=== PATIENT | female | born 1950 | race Caucasian/White ===

== ENCOUNTER 2017-02-22 15:37 | Observation (INO) | payer MEDICARE, OTHER ==
[~2017-02-22] VITALS: Ht 162.6 cm; Wt 73.1 kg
[~2017-02-22 15:37] MED LIST: AMOX-366 PO; ASPI-628 PO; ATOR80TA77 PO; BIOT800T PO; CHOL10002 PO; CIPR-232 PO; CLOP75TA3 PO; CUB500I IV; DIAZ10TA3 PO; FUR20 PO; GABA-500 PO; INSU100C8 SUBQ; INSU100V7 SUBQ; ISOS60TA2 PO; LISI-567 PO; METO25TA6 PO; MULT-64 PO; OMEG1000 PO; ONDA8TAB10 PO; OXYC5CAP4 PO; PANT40TA3 PO; POLY17PO2 PO
[2017-02-22 15:39] VITALS: BP 104/61; PULSE 66; RESP 16; O2SAT 98
--- NOTE | 2017-02-22 17:01 | ED.REPORT ---
HPI-Extremity Problem Lower Date of Service February 22, 2017 ED Provider: Doc,Ed MD History of Present Illness: left toes red and swollen started yesterday. eun is podiatry. DM for 51 years last a1c was 7.9 done last week. primary care is Litzy vanegas, recent move here from [facility]. 02/26 Nursing Notes Stated Complaint: FOOD SWOLLEN AND RED WITH PUSS Chief Complaint: Extremity Trauma Nursing Notes Reviewed: Yes Allergies: Coded Allergies: Adhesives (Verified Allergy, Unknown, 02/22/17) Sulfa (Sulfonamide Antibiotics) (Verified Allergy, Unknown, 02/22/17) TAPE (Verified Allergy, Unknown, 02/22/17) fluconazole (Verified Allergy, Unknown, 02/22/17) sulfadiazine (Verified Allergy, Unknown, 02/22/17) titanium (Verified Allergy, Unknown, 02/22/17) Uncoded Allergies: IV CONTRAST (Allergy, Unknown, 07/31/16) RENAL FAILURE Scheduled Amoxicillin/Clav K 875-125 mg (Augmentin 875-125 mg) 1 Each Tablet 1 TABLET PO BID Aspirin (Aspir 81) 81 Mg Tablet.dr 81 MG PO PM Atorvastatin Calcium (Atorvastatin Calcium) 80 Mg Tablet 80 MG PO PM Biotin (Biotin) 800 Mcg Tablet 800 MCG PO DAILY Cholecalciferol (Vitamin D3) 1,000 Unit Tablet 1,000 UNIT PO PM Ciprofloxacin (Cipro) 250 Mg Tablet 500 MG PO BID Clopidogrel Bisulfate (Plavix) 75 Mg Tablet 75 MG PO DAILY Daptomycin (Cubicin) 500 Mg/10 Ml Vial 420 MG IV DAILY Furosemide (Furosemide) 20 Mg Tab 20 MG PO DAILY Gabapentin (Gabapentin) 100 Mg Capsule 100 MG PO TID Gabapentin (Gabapentin) 100 Mg Capsule 300 MG PO HS Insulin Aspart (NovoLOG U100 Insulin Vial) 100 U/Ml U 4-12 UNIT SUBQ WMHS B-199: 4 units 200-249: 6 units 250-299: 8 units 300-349: 10 units >349 : 12 units Insulin Glargine (Lantus U100 Insulin Vial) 100 Unit/Ml Vial 22 UNIT SUBQ QPM- INSULIN Isosorbide MN ER (Isosorbide MN ER) 60 Mg Tab.er.24h 60 MG PO BID Lisinopril (Lisinopril) 20 Mg Tablet 20 MG PO DAILY Metoprolol Tartrate (Metoprolol Tartrate) 25 Mg Tablet 25 MG PO BID Multivitamin (Multivitamins) 1 Each Tab.chew 1 EACH PO AM [place]-3 Fatty Acids (Fish Oil Concentrate) 1,000 Mg Capsule 1,000 MG PO BID Pantoprazole DR (Pantoprazole DR) 40 Mg Tablet.dr 40 MG PO BID Scheduled PRN Diazepam (Diazepam) 10 Mg Tablet 10 MG PO TID PRN PRN For Anxiety Ondansetron ODT (Ondansetron ODT) 8 Mg Tab.rapdis 8 MG PO BID PRN PRN For Nausea Polyethylene Glycol 3350 (Polyethylene Glycol 3350) 17 Gm Powd.pack 17 GM PO DAILY PRN PRN For Constipation oxyCODONE (oxyCODONE) 5 Mg Capsule 5 MG PO 2-3X/day PRN PRN For Pain General Time Seen by MD: 17:00 Chief Complaint Other (red toes) Hx Obtained From: Patient Onset Occurred: Yesterday Symptom Duration: Since onset Past Medical History Past Medical History 1. Diabetic ulceration of the right second toe. 2. Diabetes with neurologic manifestations. 3. Peripheral vascular disease Reports: Diabetes mellitus Past Surgical History Spinal surgery in September Gastric bypass Cardiac stent Amputation right leg Peripheral revascularization left leg Smoking History Former Smoker (quit 15 years ago 02/22/2017) Social History Alcohol Use: 1-3 per day Drug Use: Denies drug use Other Social History: Occupation lives with 1 story with a ramp 02/22/2017 Ambulatory Status Independent Review of Systems Basic Review of Systems Eyes: Vision NL, No discharge GI: No abdominal pain, No anorexia, No nausea, No vomiting Psychiatric: Normal thought content Physical Exam Initial Vital Signs Vital Signs (First) Date Time Temp Pulse Resp B/P Pulse Ox O2 Delivery O2 Flow Rate FiO2 02/22/17 15:39 36.4 66 16 104/61 98 Room Air Initial VS: Reviewed, Vital signs normal General/Constitutional: Well-developed, Well-nourished Head / Eyes: Atraumatic, Normocephalic, PERRL ENT: Mucous membranes moist, Conjunctiva normal, No scleral icterus Neck: Supple, Non-tender, Full range of motion Respiratory: Breath sounds normal, Clear to auscultation, No respiratory distress Cardiovascular: Regular rate & rhythm, Heart sounds normal, Intact distal pulses Abdomen / GI: Soft, Non-tender, No guarding, No rebound, No distention Back: No CVA tenderness Lymphatic: No lymphadenopathy Upper Extremities: Vascular intact, Neuro intact, No swelling, No tenderness Skin: Warm, Dry, No cyanosis Neurologic: Alert, Oriented, Nonfocal Psychiatric: Mood/affect normal, Behavior normal, Normal thought content on initial exam left lower leg had a large amount of swelling and was cool to touch and pale with minimal erthyma on toes. After elevating leg and antibiotics, leg swelling has decreased by 50% and erthyma has increased. GRAEME is left arm 125/44 left leg is 125/62 General/Constitutional: Awake, Alert, No acute distress, Well appearing, Well developed, Well hydrated Respiratory / Chest: Atraumatic, Breath sounds NL, Breath sounds = bilat, No respiratory distress Cardiovascular: Heart rate NL, Regular rhythm, Heart sounds NL, No gallop Interpretation & Diagnostics Lab Results Interpretation Result Diagram: 02/22/17 1710 02/22/17 1710 Test 02/22/17 17:10 White Blood Count 11.1th/mm3 (3.8-10.1) Red Blood Count 4.36mil/mm3 (3.90-5.20) Hemoglobin 11.5g/dL (12.0-15.6) Hematocrit 36.3% (35.0-46.0) Mean Corpuscular Volume 83.3fL (81-100) Mean Corpuscular Hemoglobin 26.4pg (27.0-35.0) Mean Corpuscular Hemoglobin Concent 31.7% (32.0-37.0) Red Cell Distribution Width 14.1% (12.3-15.4) Platelet Count 449bil/L (150-400) Neutrophils (%) (Auto) 56.9% (40-74) Lymphocytes (%) (Auto) 31.4% (14-46) Monocytes (%) (Auto) 8.8% (4-12) Eosinophils (%) (Auto) 1.9% (0-5) Basophils (%) (Auto) 0.7% (0-3) Sodium Level 136mEq/L (134-144) Potassium Level 4.4mEq/L (3.5-5.2) Chloride Level 98mEq/L (97-108) Carbon Dioxide Level 25mmol/L (18-29) Blood Urea Nitrogen 16mg/dL (8-27) Creatinine 0.79mg/dL (0.57-1.00) Estimat Glomerular Filtration Rate 105mL/min (>59) Glucose Level 48mg/dL (60-99) Lactic Acid Level 0.9mmol/L (0.4-2.0) Calcium Level 9.1mg/dL (8.5-10.1) Magnesium Level 1.4mg/dL (1.6-2.6) Total Bilirubin 0.4mg/dL (0.0-1.2) Aspartate Amino Transf (AST/SGOT) 20U/L (0-50) Alanine Aminotransferase (ALT/SGPT) 17U/L (0-32) Alkaline Phosphatase 108U/L (25-165) Troponin T < 0.010ug/L (0.0-0.011) Total Protein 6.9g/dL (6.4-8.4) Albumin 3.3g/dL (3.4-5.0) X-Ray Interpretation Xray Interpretation: PROCEDURE: X-RAY LEFT FOOT COMPLETE, MINIMUM THREE VIEWS ([id number]) INDICATIONS: swelling TECHNIQUE: 3 views of the foot were acquired. COMPARISON: None. FINDINGS: Bones: Bones are diffusely osteopenic. No acute fracture or dislocation. Soft tissues: There is marked dorsal soft tissue swelling. There extensive soft tissue vascular calcifications. IMPRESSION: 1. Dorsal soft tissue swelling. No acute fracture or dislocation. No findings to suggest advanced osteomyelitis. Please note, plain film is less sensitive for detection of the acute phases of osteomyelitis. If there is clinical suspicion for acute osteomyelitis, contrast enhanced MRI of the foot is recommended. Dictated by: Maria L Woods M.D. on 02/22/2017 at 17:41 Approved by: Maria L Woods M.D. on 02/22/2017 at 17:43 US Soft Tissue/Musculoskeletal ROCEDURE: US DUPLEX DOPPLER UNILATERAL LEG ARTERIES, LEFT INDICATIONS: cool leg TECHNIQUE: Color and pulse Doppler interrogation was performed of the left lower extremity arterial system, with image documentation. COMPARISON: None. FINDINGS: There is a common femoral, popliteal bypass graft present. Common femoral artery: 247 cm/sec, with biphasic flow. Deep femoral artery: Not well-visualized. Proximal bypass graft: 142 cm/sec, with biphasic flow. Mid bypass graft: 82 cm/sec, with biphasic flow. Distal bypass graft: 100 cm/sec, with monophasic flow. Popliteal artery: Not well-visualized. Posterior tibial artery: Not well-visualized. Anterior tibial artery/dorsalis pedis: 43 cm/sec, with monophasic flow. Giraldo-scale imaging description: Bypass graft is widely patent. However, the distal anastomosis is not well characterized by ultrasound. IMPRESSION: 1. Femoral-popliteal bypass graft appears widely patent throughout its course. However, the distal anastomosis is not well characterized. Anastomotic stenosis cannot be excluded. 2. There is poor ultrasound characterization of the popliteal artery and posterior tibial artery. It is unclear whether there may be a high-grade stenosis or occlusion of this artery with reconstitution of the dorsalis pedis via collaterals. If further characterization is warranted, consider CT angiography of the lower extremity. Dictated by: Maria L Woods M.D. on 02/22/2017 at 19:09 Approved by: Maria L Woods M.D. on 02/22/2017 at 19:14 PROCEDURE: US VEINOUS LEG DUPLEX UNILATERAL, LEFT INDICATIONS: leg swelling TECHNIQUE: Real-time imaging, as well as color and pulse Doppler interrogation, were performed of the lower extremity deep veins from the inguinal ligament to the popliteal fossa. COMPARISON: None. FINDINGS: The deep veins are normally compressible, and free of intraluminal thrombus. Color and pulse Doppler demonstrate normal phasic intraluminal flow. There is normal augmentation response to distal compression maneuver. IMPRESSION: No deep vein thrombosis of the left lower extremity. Dictated by: Maria L Woods M.D. on 02/22/2017 at 19:09 Approved by: Maria L Woods M.D. on 02/22/2017 at 19:09 Re-Eval/Medical Decision Med Decision/Clinical Course 67 year old type 1 diabetic presents for evualation of red toes since last night. Patient and are new to town. Patient with vascular disease. Discussed with Juan SERRATO and Dr. Chavez. Dr. Chavez will follow patient . Admitted Discharge & Departure Impression: Primary Impression: Cellulitis Site of cellulitis of extremity: lower extremity Laterality: left Disposition: ADMITTED TO HOSPITAL Referrals: Litzy Vanegas (PCP) EDSupervising Provider for APC: Garry Martinez MD copies to: Litzy Vanegas Sue ARNP February 22, 2017 17:01
[2017-02-22] MEDS ORDERED: 0.9% Sodium Chloride 500 ML IV ONE (17:15)
[2017-02-22] MEDS ORDERED: Piperacillin-Tazo 3.375 Gm Inj 3.375 GM in Dextrose 5% Minibag Plus 50 ML IV ONE (17:25)
[2017-02-22 17:27] LABS: BASOPHILS % (AUTO) 0.7 % (0-3); EOSINOPHILS % (AUTO) 1.9 % (0-5); MONOCYTES % (AUTO) 8.8 % (4-12); Mean Corpuscular Hemoglobin 26.4 pg (27.0-35.0); Mean Corpuscular Volume 83.3 fL (81-100); NEUTROPHILS % (AUTO) 56.9 % (40-74); Platelet Count 449 bil/L (150-400)
--- NOTE | 2017-02-22 17:44 | DRSVH ---
PROCEDURE: X-RAY LEFT FOOT COMPLETE, MINIMUM THREE VIEWS ([id number]) INDICATIONS: swelling TECHNIQUE: 3 views of the foot were acquired. COMPARISON: None. FINDINGS: Bones: Bones are diffusely osteopenic. No acute fracture or dislocation. Soft tissues: There is marked dorsal soft tissue swelling. There extensive soft tissue vascular calci fications. IMPRESSION: 1. Dorsal soft tissue swelling. No acute fracture or dislocation. No findings to suggest advanced ost eomyelitis. Please note, plain film is less sensitive for detection of the acute phases of osteomyeli tis. If there is clinical suspicion for acute osteomyelitis, contrast enhanced MRI of the foot is rec ommended. Dictated by: Maria L Woods M.D. on 02/22/2017 at 17:41 Approved by: Maria L Woods M.D. on 02/22/2017 at 17:43
[2017-02-22 17:49] LABS: TROPONIN T < 0.010 ug/L (0.0-0.011)
[2017-02-22 18:00] LABS: Magnesium 1.4 mg/dL (1.6-2.6)
--- NOTE | 2017-02-22 19:11 | DRSVH ---
PROCEDURE: US VEINOUS LEG DUPLEX UNILATERAL, LEFT INDICATIONS: leg swelling TECHNIQUE: Real-time imaging, as well as color and pulse Doppler interrogation, were performed of the lower extr emity deep veins from the inguinal ligament to the popliteal fossa. COMPARISON: None. FINDINGS: The deep veins are normally compressible, and free of intraluminal thrombus. Color and pu lse Doppler demonstrate normal phasic intraluminal flow. There is normal augmentation response to di stal compression maneuver. IMPRESSION: No deep vein thrombosis of the left lower extremity. Dictated by: Maria L Woods M.D. on 02/22/2017 at 19:09 Approved by: Maria L Woods M.D. on 02/22/2017 at 19:09
--- NOTE | 2017-02-22 19:15 | DRSVH ---
PROCEDURE: US DUPLEX DOPPLER UNILATERAL LEG ARTERIES, LEFT INDICATIONS: cool leg TECHNIQUE: Color and pulse Doppler interrogation was performed of the left lower extremity arterial system, with image documentation. COMPARISON: None. FINDINGS: There is a common femoral, popliteal bypass graft present. Common femoral artery: 247 cm/sec, with biphasic flow. Deep femoral artery: Not well-visualized. Proximal bypass graft: 142 cm/sec, with biphasic flow. Mid bypass graft: 82 cm/sec, with biphasic flow. Distal bypass graft: 100 cm/sec, with monophasic flow. Popliteal artery: Not well-visualized. Posterior tibial artery: Not well-visualized. Anterior tibial artery/dorsalis pedis: 43 cm/sec, with monophasic flow. Giraldo-scale imaging description: Bypass graft is widely patent. However, the distal anastomosis is not well characterized by ultrasound. IMPRESSION: 1. Femoral-popliteal bypass graft appears widely patent throughout its course. However, the distal an astomosis is not well characterized. Anastomotic stenosis cannot be excluded. 2. There is poor ultrasound characterization of the popliteal artery and posterior tibial artery. It is unclear whether there may be a high-grade stenosis or occlusion of this artery with reconstitution of the dorsalis pedis via collaterals. If further characterization is warranted, consider CT angiogr aphy of the lower extremity. Dictated by: Maria L Woods M.D. on 02/22/2017 at 19:09 Approved by: Maria L Woods M.D. on 02/22/2017 at 19:14
[2017-02-22 19:38] VITALS: BP_SYST 125; BP_DIAS 44; BP_DIAS 62
--- NOTE | 2017-02-22 20:11 | PCM.HPMED ---
Subjective Date of Service February 22, 2017 Primary Provider: Admitting Physician: Primary Care Physician: Litzy Vanegas Attending Physician: Chief Complaint: Left toes swelling and redness History of Present Illness: This is a 67-year-old female with past medical history significant for right below the knee amputation, type I diabetes mellitus with neuropathy, coronary artery disease status post stent placement and CABG, and peripheral vascular disease who presents today with swollen and red left toes. She has a significant neuropathy but states she does have some pain described as a burning sensation. The swelling began yesterday and has progressively worsened. Her last A1c was completed last week was 7.9. She denies any fevers , nausea, vomiting, diarrhea, chest pain or pressure, shortness of breath, diaphoresis, numbness or tingling extremities. In the emergency department initial vitals were temperature 36.4c, pulse 66, respiratory rate 16, blood pressure 104/61, satting 98% on room air. Laboratory values: WBC 11.1, hemoglobin 11.6, hematocrit 36.3, MCV 83.3, platelet count 449. CMP was within normal limits except for glucose of 48, albumin of 3.3, and magnesium of 1.4. Lactic acid was 0.9 and troponin less than 0.010. Blood cultures are pending. Venous duplex showed no deep vein thrombosis of the left lower extremity. Left foot x-ray showed dorsal soft tissue swelling, no fracture dislocation, no findings suggestive of advanced osteomyelitis. US duplex left leg arteries showed femoropopliteal bypass graft widely patent however the distal anastomoses was not well characterized. Anastomotic stenosis cannot be excluded. There was poor ultrasound characterization of the popliteal artery and posterior tibial artery. It was unclear whether there may be a high-grade stenosis or occlusion of the artery with reconstitution of the dorsalis pedis via collaterals. Please see full imaging reports for more information. In the emergency department the patient was started on Zosyn and vancomycin. Podiatry was contacted. Dr. Chavez will see the patient in morning. Review of Systems: A comprehensive review of systems was conducted with the patient and found to be negative except as above in the History of Present Illness. Allergies Coded Allergies: Adhesives (Verified Allergy, Unknown, 02/22/17) Sulfa (Sulfonamide Antibiotics) (Verified Allergy, Unknown, 02/22/17) TAPE (Verified Allergy, Unknown, 02/22/17) fluconazole (Verified Allergy, Unknown, 02/22/17) sulfadiazine (Verified Allergy, Unknown, 02/22/17) titanium (Verified Allergy, Unknown, 02/22/17) Uncoded Allergies: IV CONTRAST (Allergy, Unknown, 07/31/16) RENAL FAILURE Home Medications Aspirin (Aspir 81) 81 Mg Tablet.dr 81 MG PO PM Atorvastatin Calcium (Atorvastatin Calcium) 80 Mg Tablet 80 MG PO PM Cholecalciferol (Vitamin D3) 1,000 Unit Tablet 1,000 UNIT PO PM Clopidogrel Bisulfate (Plavix) 75 Mg Tablet 75 MG PO DAILY Furosemide (Furosemide) 20 Mg Tab 20 MG PO DAILY Gabapentin (Gabapentin) 100 Mg Capsule 900mg PO HS Novolin 13 units BID Isosorbide MN ER (Isosorbide MN ER) 60 Mg Tab.er.24h 60 MG PO BID Lisinopril (Lisinopril) 5 MG PO DAILY Metoprolol Tartrate (Metoprolol Tartrate) 25 Mg Tablet 25 MG PO BID Pantoprazole DR (Pantoprazole DR) 40 Mg Tablet.dr 40 MG PO BID Scheduled PRN Diazepam (Diazepam) 10 Mg Tablet 10 MG at bedtime. Polyethylene Glycol 3350 (Polyethylene Glycol 3350) 17 Gm Powd.pack 17 GM PO DAILY PRN PRN For Constipation oxyCODONE (oxyCODONE) 5 Mg Capsule 5 MG PO 2-3X/day PRN PRN For Pain PMH Type I diabetes mellitus Coronary artery disease status post stent placement and CABG. Peripheral vascular disease Peripheral neuropathy. Gastroesophageal reflux disease Vitamin D deficiency Hyperlipidemia Hypertension History of contrast induced nephropathy. Surgical History Spinal surgery CABG x2 Cardiac stent Below the knee amputation of right leg Peripheral revascularization of left leg. Family History Brother: Throat cancer Father: Cardiovascular disease Mother: Pancreatic cancer Social History Hx Alcohol Use: Yes Alcoholic Drinks Per Day: 2/day Hx Substance Use: No Hx Tobacco Use: No Smoking Status: Former Smoker Exam Vital Signs Vital Sign - Last Date Time Temp Pulse Resp B/P Pulse Ox O2 Delivery O2 Flow Rate FiO2 02/22/17 19:38 125/44 125/62 02/22/17 15:39 36.4 66 16 98 Room Air Exam General: No acute distress, well-developed, well-nourished, appropriately interactive HEENT: Normocephalic, atraumatic. External ears without defect. Pupils equal, round, and reactive to light and accommodation. Anicteric sclerae, moist conjunctivae, and no lid lag. Oropharynx free of erythema and cobble stoning with moist mucosa. Neck: Supple with full range of motion. No jugular venous distension. No bruits. No lymphadenopathy or thyromegaly. Cardiovascular: Regular rate and rhythm with no murmurs, rubs, or gallops appreciated Pulmonary: Clear to auscultation bilaterally with no crackles, wheezes, or rhonchi. Normal respiratory effort with no use of accessory muscles. Abdomen: Bowel tones present. Soft, nontender, nondistended. No hepatosplenomegaly or masses appreciated. Extremities: Weak dorsalis pedis and posterior tibialis pulses on left leg. Left lower extremity digits: 2nd, 3rd, and 4th digits erythematous. No discharge present. Right lower extremity with below the knee amputation. Skin: Normal temperature, turgor, and texture; no rash, ulcers, or subcutaneous nodules appreciated. Neurological: Cranial nerves grossly intact. Normal muscle strength, tone, and bulk. Reflexes, coordination, and sensory function within normal limits. No known gait impairment. Psychiatric: Normal mood and affect. Alert and oriented to person, place, and time. Lab and Diagnostics Result Diagram: 02/22/17 1710 02/22/17 1710 X-Rays, CTs and MRIs X-ray left foot completed on 02/22/2017: IMPRESSION: 1. Dorsal soft tissue swelling. No acute fracture or dislocation. No findings to suggest advanced osteomyelitis. Please note, plain film is less sensitive for detection of the acute phases of osteomyelitis. If there is clinical suspicion for acute osteomyelitis, contrast enhanced MRI of the foot is recommended. Dictated by: Maria L Woods M.D. on 02/22/2017 at 17:41 Additional Diagnostics: Left leg venous ultrasound duplex unilateral completed on 02/22/2017: IMPRESSION: No deep vein thrombosis of the left lower extremity. Dictated by: Maria L Woods M.D. on 02/22/2017 at 19:09 Ultrasound duplex Doppler unilateral left leg arteries completed on 02/22/2017: IMPRESSION: 1. Femoral-popliteal bypass graft appears widely patent throughout its course. However, the distal anastomosis is not well characterized. Anastomotic stenosis cannot be excluded. 2. There is poor ultrasound characterization of the popliteal artery and posterior tibial artery. It is unclear whether there may be a high-grade stenosis or occlusion of this artery with reconstitution of the dorsalis pedis via collaterals. If further characterization is warranted, consider CT angiography of the lower extremity. Dictated by: Maria L Woods M.D. on 02/22/2017 at 19:09 Assessment & Plan This is a 67-year-old female with past medical history significant for type I diabetes mellitus with peripheral neuropathy, peripheral artery disease, and right leg below the knee amputation who presents with swelling and erythema in her left foot which is consistent with cellulitis. Osteomyelitis cannot be ruled out at this point and in the morning day team can decide if a MRI is needed. Left leg cellulitis, acute, present on admission: -Zosyn and vancomycin. -Pain control with Tylenol. Oxycodone as needed for moderate to severe pain. -Consider MRI in the a.m. to rule out osteomyelitis. -Dr. Chavez of podiatry will follow in the a.m. -PT/OT consult placed. Hypomagnesemia, present on admission: -Mag replacement ordered. Type I diabetes mellitus, stable, present admission: -Continue home dose of insulin: Novolin 13 units BID.. -Humalog low dose correctional scale. Peripheral arterial disease, stable, present admission: -Ultrasound duplex of left leg arteries stated that a anastomotic stenosis could not be excluded. There is poor ultrasound characterization the popliteal artery and posterior tibial artery. It was unclear whether high-grade stenosis or occlusion of that artery. -Consider CT angiography in the a.m. Patient does have history of JOVI after contrast administration. She states she would like to avoid use of any contrast. Coronary artery disease s/p CABG and stent: -Continue on Aspirin, Plavix. Hypertension, stable, present on admission: -Continue home medications. Other: -Med req completed. Patient is admitted under inpatient status with expected length of stay greater than 2 midnights due to severity of presenting symptoms, risk of adverse event, and complexity of treatment plan. Attending Statement The patient was seen and examined together with Dr. Muñoz on 02/22 and I agree with the history, exam and plan as outlined in the note above. Parth Muñoz DO February 22, 2017 20:11 Rigo Jackman MD February 23, 2017 00:02
[2017-02-22 20:21] VITALS: BP 140/46; PULSE 73; RESP 16; O2SAT 100
[2017-02-22] MEDS ORDERED: Ondansetron 2 mg/mL 2 mL Inj IVPUSH PRN (21:05)
[2017-02-22 21:46] LABS: APPEARANCE,URINE HAZY (CLEAR,HAZY); COLOR,URINE YELLOW (YELLOW); OCCULT BLOOD,URINE TRACE (NEGATIVE); PH,URINE 5.5 (5.0-8.0); UROBILINOGEN,URINE NORMAL (NORMAL)
[2017-02-22 22:02] VITALS: BP 156/74; PULSE 76; RESP 16; O2SAT 99
[2017-02-22] MEDS ORDERED: Glucose 40% Oral Gel 15 Gm Tube PO PRN (22:45)
[2017-02-22] MEDS ORDERED: LISI-571 PO (22:52)
[2017-02-22] MEDS ORDERED: INSU100V27 SQ (22:52)
[2017-02-22] MEDS ORDERED: NPH,100V10 SUBQ (22:52)
[2017-02-22] MEDS ORDERED: GABA-502 PO (22:52)
[2017-02-22] MEDS ORDERED: Magnesium Sulf 2 Gm/50mL Water 2 GM in IV Premix 1 EACH IV ONE (23:40)
[2017-02-23] VITALS (8 sets, daily range): BP systolic 115–148; BP diastolic 60–70; PULSE 68–83; RESP 16–18; O2SAT 96–99
[2017-02-23] MEDS: Insulin Human NPH 100 Unit/mL 3 mL Inj SUBQ SCH ×3 (01:41→22:14)
[2017-02-23] MEDS: Isosorbide Mononitrate 60 mg ER24 Tablet PO SCH ×3 (01:42→22:15)
[2017-02-23] MEDS: Pantoprazole 40 mg ER24 Tablet PO SCH ×3 (01:43→16:54)
[2017-02-23] MEDS ORDERED: Piper-Tazo 3.375 Gm/50 mL D5W Minibag Plus - Q8H over 4 hrs IV ONE ×2 (03:10)
[2017-02-23] MEDS ORDERED: Vancomycin 1 Gm/200 mL NS Premix IV SCH (04:00)
--- NOTE | 2017-02-23 04:05 | PCM.PHAPRO ---
Progress Date of Service: February 23, 2017 Left toes swelling and redness Vancomycin Management Per Pharmacy: Indication: Diabetic foot infection Goal Trough: 10-15 mg/dL Age: 67 yo Weight: 73 kg Labs: WBC: 11.1 SrCr: 0.79 mg/dL Lactic Acid: 0.9 Est CrCl ~ 65 mL/min (R BKA being accounted for in estimation) Nephrotoxic Risk Factors: Diabetes Type I (past Hgb A1c = 7.7), Zosyn IV, severe PVD w/ R BKA Vitals: All stable Recommendation: Load: Vancomycin 1500 mg IV x 1 given in ED (~20 mg/kg) Maintenance: Vancomycin 750 mg IV Q12h (~10 mg/kg) - conservative dosing due to above nephrotoxic risk factors Vancomycin Trough: Due on 02/24/17 @ 1500 prior to 4th maintenance dose Pharmacy to continue to monitor and adjust dose as needed. Thank You, Anika Long, Pharm D. Anika Long February 23, 2017 04:05
[2017-02-23] MEDS ORDERED: Insulin Human NPH-Reg 70-30 100 Unit/mL 10 ML Mdv SUBQ SCH (07:30)
[2017-02-23 07:34] LABS: BASOPHILS % (AUTO) 0.4 % (0-3); EOSINOPHILS % (AUTO) 0.7 % (0-5); MONOCYTES % (AUTO) 3.7 % (4-12); Mean Corpuscular Hemoglobin 26.3 pg (27.0-35.0); Mean Corpuscular Volume 82.9 fL (81-100); NEUTROPHILS % (AUTO) 81.5 % (40-74); Platelet Count 428 bil/L (150-400)
[2017-02-23 07:59] LABS: Magnesium 1.8 mg/dL (1.6-2.6)
[2017-02-23] MEDS ORDERED: Vancomycin Dose per Pharmacist XX SCH (08:30)
[2017-02-23] MEDS: Insulin LISPRO 300 Unit/3 mL Inj SUBQ SCH ×4 (08:40→22:14)
--- NOTE | 2017-02-23 11:11 | PCM.CHPPOD ---
Subjective Date of service February 23, 2017 History of Present Illness 67-year-old female admitted last evening through the ED for cellulitis of the second third toes left foot. Patient states that approximately 3 days ago she noticed some bluish discoloration of the toes no recognized trauma and subsequently noted some moisture in her sock. She had increased left forefoot edema, redness and since she is status post BKA on the right presented to the ED. Patient states she has noted improvement in the redness and mildly reduce swelling this morning. Patient does have long-standing diabetes, peripheral neuropathy, PAD. She is status post revascularization on the left and does see a vascular specialist in [place]. She is a patient of of the podiatry department. Patient denies constitutional signs of infection such as fever chills or malaise of present and is in good spirits, somewhat anxious to go home Allergy Allergies: Coded Allergies: Adhesives (Verified Allergy, Unknown, 02/22/17) Sulfa (Sulfonamide Antibiotics) (Verified Allergy, Unknown, 02/22/17) TAPE (Verified Allergy, Unknown, 02/22/17) fluconazole (Verified Allergy, Unknown, 02/22/17) sulfadiazine (Verified Allergy, Unknown, 02/22/17) titanium (Verified Allergy, Unknown, 02/22/17) Uncoded Allergies: IV CONTRAST (Allergy, Unknown, 07/31/16) RENAL FAILURE Medications Aspirin (Aspir 81) 81 Mg Tablet.dr 81 MG PO PM Atorvastatin Calcium (Atorvastatin Calcium) 80 Mg Tablet 80 MG PO PM Cholecalciferol (Vitamin D3) 1,000 Unit Tablet 1,000 UNIT PO AM Clopidogrel Bisulfate (Plavix) 75 Mg Tablet 75 MG PO DAILY Diazepam (Diazepam) 10 Mg Tablet 10 MG PO HS PRN PRN For Anxiety Gabapentin (Gabapentin) 300 Mg Capsule 300 MG PO HS Insulin Regular, Human (Novolin-R U100 Insulin Vial) 100 Unit/1 Ml Vial 0 SQ sliding scale/ TID Isosorbide MN ER (Isosorbide MN ER) 60 Mg Tab.er.24h 60 MG PO BID Lisinopril (Lisinopril) 5 Mg Tablet 5 MG PO DAILY Metoprolol Tartrate (Metoprolol Tartrate) 25 Mg Tablet 25 MG PO BID Multivitamin (Multivitamins) 1 Each Tab.chew 1 EACH PO AM NPH, Human Insulin Isophane (Novolin-N U100 Insulin Vial) 100 Unit/1 Ml Vial 13 UNIT SUBQ BID [place]-3 Fatty Acids (Fish Oil Concentrate) 1,000 Mg Capsule 1,000 MG PO BID Pantoprazole DR (Pantoprazole DR) 40 Mg Tablet.dr 40 MG PO BID Polyethylene Glycol 3350 (Polyethylene Glycol 3350) 17 Gm Powd.pack 17 GM PO DAILY PRN PRN For Constipation oxyCODONE (oxyCODONE) 5 Mg Capsule 5 MG PO 2-3X/day PRN PRN For Pain Past Medical History Surgeries: Yes Medical History: Surgical History: Social History Hx Alcohol Use: Yes Alcoholic Drinks Per Day: 2/day Hx Substance Use: No Hx Tobacco Use: No Smoking Status: Former Smoker Podiatry Consult Exam Vital Signs Vital Sign - Last Date Time Temp Pulse Resp B/P Pulse Ox O2 Delivery O2 Flow Rate FiO2 02/23/17 09:55 36.6 77 18 118/64 99 Room Air Intake and Output 02/22/17 02/22/17 02/23/17 Cumulative From/Thru 14:59 22:59 06:59 02/22/17 15:39 - 02/23/17 05:52 Intake Total 500 ml 572 ml 1072 ml Output Total 400 ml 400 ml Balance 500 ml 172 ml 672 ml Intake Oral 300 ml 300 ml IV Total 500 ml 272 ml 772 ml Output Urine Total 400 ml 400 ml Result Diagram: 02/23/17 0720 02/23/17 0720 Lab Test 02/22/17 17:10 02/22/17 21:30 02/23/17 07:20 Lactic Acid Level 0.9mmol/L (0.4-2.0) Troponin T < 0.010ug/L (0.0-0.011) Urine Color Yellow (YELLOW) Urine Appearance Hazy (CLEAR,HAZY) Urine pH 5.5 (5.0-8.0) Urine Specific [place] 1.015 (1.003-1.035) Urine Protein Negativemg/dL (NEG,TRACE) Urine Glucose (UA) 250mg/dL (NEGATIVE) Urine Ketones Negativemg/dL (NEGATIVE) Urine Occult Blood Trace (NEGATIVE) Urine Nitrite Negative (NEGATIVE) Urine Bilirubin Negative (NEGATIVE) Urine Urobilinogen Normalmg/dL (NORMAL) Urine Leukocyte Esterase Moderate (NEGATIVE) Urine RBC 0-2/hpf (0-2) Urine WBC 11-50/hpf (0-5) Urine Epithelial Cells Few/hpf (NONE-MOD) Urine Crystals None seen (NONE SEEN) Urine Bacteria Few/hpf (NONE-FEW) Urine Hyaline Casts None/lpf (NONE) Urine Granular Casts None seen (NONE SEEN) Urine Waxy Casts None seen (NONE SEEN) Urine Red Blood Cell Casts None seen (NONE SEEN) Urine White Blood Cell Casts None seen (NONE SEEN) Urine Mucus None seen (None Seen) Urine Trichomonas None seen (NONE SEEN) Urine Yeast None (NONE SEEN) Urinalysis Comment None Urine Culture Reflexed Indicated White Blood Count 12.1th/mm3 (3.8-10.1) Red Blood Count 4.14mil/mm3 (3.90-5.20) Hemoglobin 10.9g/dL (12.0-15.6) Hematocrit 34.3% (35.0-46.0) Mean Corpuscular Volume 82.9fL (81-100) Mean Corpuscular Hemoglobin 26.3pg (27.0-35.0) Mean Corpuscular Hemoglobin Concent 31.8% (32.0-37.0) Red Cell Distribution Width 13.9% (12.3-15.4) Platelet Count 428bil/L (150-400) Neutrophils (%) (Auto) 81.5% (40-74) Lymphocytes (%) (Auto) 13.5% (14-46) Monocytes (%) (Auto) 3.7% (4-12) Eosinophils (%) (Auto) 0.7% (0-5) Basophils (%) (Auto) 0.4% (0-3) Sodium Level 132mEq/L (134-144) Potassium Level 5.2mEq/L (3.5-5.2) Chloride Level 97mEq/L (97-108) Carbon Dioxide Level 21mmol/L (18-29) Blood Urea Nitrogen 17mg/dL (8-27) Creatinine 0.84mg/dL (0.57-1.00) Estimat Glomerular Filtration Rate 97mL/min (>59) Glucose Level 405mg/dL (60-99) Calcium Level 8.5mg/dL (8.5-10.1) Magnesium Level 1.8mg/dL (1.6-2.6) Total Bilirubin 0.6mg/dL (0.0-1.2) Aspartate Amino Transf (AST/SGOT) 13U/L (0-50) Alanine Aminotransferase (ALT/SGPT) 13U/L (0-32) Alkaline Phosphatase 102U/L (25-165) Total Protein 5.6g/dL (6.4-8.4) Albumin 2.7g/dL (3.4-5.0) Diagnostics X-ray negative for osteomyelitis, white count up slightly since admission at 12.1, a.m. blood sugar 405. Exam Additional Information: Right lower extremity shows below-knee amputation which is not examined. Left foot is unbandaged, diffuse edema without erythema or warmth of the dorsal forefoot. There are dry superficial excoriations on the dorsum of the second third and fourth toes, webspaces very slightly macerated but no open lesions or fissures noted. Nails are grossly dystrophic 5. Pedal skin is otherwise well hydrated, slightly cool, no significant dependent hyperemia or elevational pallor. Pulses are nonpalpable at the DP and PT level, and plantar sensation appears somewhat diminished. Assessment & Plan Assessment The cellulitis second third and fourth toes left foot which seems to be responding well to vancomycin and Zosyn., Peripheral arterial disease, neuropathy, onychomycosis, status post BKA on the right Problems: Plan Discussed findings with patient, will apply light coat of antibiotic ointment to the areas of excoriation but otherwise no bandaging or wound care necessary at this time area. Continue vancomycin and Zosyn overnight but I would anticipate discharge in the a.m., on broad spectrum by mouth antibiotic such as cephalexin with outpatient follow-up with Dr. Rueda in the next several days. I do not feel MRI is necessary at this time. VTE Mechanical Devices: Intermittant Pneumatic CD Socrates Chavez DPM February 23, 2017 11:11
[2017-02-23] MEDS: Piperacillin-Tazo 3.375 Gm Inj 3.375 GM in Dextrose 5% Minibag Plus 50 ML IV SCH ×2 (12:02→22:13)
[2017-02-23] MEDS ORDERED: Glucose 40% Oral Gel 15 Gm Tube PO PRN (13:30)
--- NOTE | 2017-02-23 13:35 | PCM.PNMED ---
Subjective Date of Service February 23, 2017 Subjective feels better today. minimal pain in her foot denies: headache, lightheadedness, chest pain, worsening shortness of breath, cough, abdominal pain, nausea, vomiting, diarrhea, dysuria, sweats, chills, shakes Exam Vital Signs Vital Sign - Last Date Time Temp Pulse Resp B/P Pulse Ox O2 Delivery O2 Flow Rate FiO2 02/23/17 09:55 36.6 77 18 118/64 99 Room Air Intake and Output 02/22/17 02/22/17 02/23/17 Cumulative From/Thru 15:00 23:00 07:00 02/22/17 15:39 - 02/23/17 05:52 Intake Total 500 ml 572 ml 1072 ml Output Total 400 ml 400 ml Balance 500 ml 172 ml 672 ml Intake Oral 300 ml 300 ml IV Total 500 ml 272 ml 772 ml Output Urine Total 400 ml 400 ml Exam Physical Exam: Gen: no acute distress HEENT: moist mucus membranes Respiratory: CTAB, unlabored respirations Cardiovascular: RRR, no m/r/g Abdomen: soft, non-tender, non-distended. + bowel sounds x 4 quadrants Extr: amputation RLE. LLE erythema surrounding digits. no open wound or ulcer. no spreading erythema. Psyc: appropriate, cooperative IVs and Medications Medications Reviewed: Medications were reviewed in detail Lab and Diagnostics Result Diagram: 02/23/1771902/23/17719 X-Rays, CTs and MRIs X-ray left foot completed on 02/22/2017: IMPRESSION: 1. Dorsal soft tissue swelling. No acute fracture or dislocation. No findings to suggest advanced osteomyelitis. Please note, plain film is less sensitive for detection of the acute phases of osteomyelitis. If there is clinical suspicion for acute osteomyelitis, contrast enhanced MRI of the foot is recommended. Dictated by: Maria L Woods M.D. on 02/22/2017 at 17:41 Additional Diagnostics Left leg venous ultrasound duplex unilateral completed on 02/22/2017: IMPRESSION: No deep vein thrombosis of the left lower extremity. Dictated by: Maria L Woods M.D. on 02/22/2017 at 19:09 Ultrasound duplex Doppler unilateral left leg arteries completed on 02/22/2017: IMPRESSION: 1. Femoral-popliteal bypass graft appears widely patent throughout its course. However, the distal anastomosis is not well characterized. Anastomotic stenosis cannot be excluded. 2. There is poor ultrasound characterization of the popliteal artery and posterior tibial artery. It is unclear whether there may be a high-grade stenosis or occlusion of this artery with reconstitution of the dorsalis pedis via collaterals. If further characterization is warranted, consider CT angiography of the lower extremity. Dictated by: Maria L Woods M.D. on 02/22/2017 at 19:09 Assessment & Plan This is a 67-year-old female with past medical history significant for type I diabetes mellitus with peripheral neuropathy, peripheral artery disease, and right leg below the knee amputation who presents with swelling and erythema in her left foot which is consistent with cellulitis. Osteomyelitis cannot be ruled out at this point and in the morning day team can decide if a MRI is needed. Left leg cellulitis, acute, present on admission: seen by podiatry today tailor stas. await cx Hypomagnesemia, resolved Type I diabetes mellitus, stable, present admission: -Continue home dose of insulin: Novolin 13 units BID.. -Humalog change to high dose coverage. Peripheral arterial disease, stable, present admission: -Ultrasound duplex of left leg arteries stated that a anastomotic stenosis could not be excluded. There is poor ultrasound characterization the popliteal artery and posterior tibial artery. It was unclear whether high-grade stenosis or occlusion of that artery. does not want cta b/c has had renal failure in the past. differ for now. Coronary artery disease s/p CABG and stent: med managment Hypertension, stable, present on admission: -Continue home medications. dispo: pending cont clincial improvment. possible d/c tomorrow if clinically stable. VTE Mechanical Devices: Intermittant Pneumatic CD Nael Moncada MD February 23, 2017 13:35
[2017-02-23] MEDS ORDERED: Vancomycin Inj 750 MG in IV Premix 1 EACH IV SCH (16:00)
[2017-02-24] MEDS ORDERED: Vancomycin Inj 750 MG in 0.9% Sodium Chloride 250 ML IV SCH (06:00)
[2017-02-24 06:22] VITALS: BP 119/66; PULSE 64; RESP 16; O2SAT 95
[2017-02-24] MEDS ORDERED: Piperacillin-Tazo 3.375 Gm Inj 3.375 GM in Dextrose 5% Minibag Plus 50 ML IV SCH (07:30)
[2017-02-24] MEDS: Pantoprazole 40 mg ER24 Tablet PO SCH (08:13)
[2017-02-24] MEDS: Insulin LISPRO 300 Unit/3 mL Inj SUBQ SCH ×2 (08:36→12:13)
[2017-02-24] MEDS: Insulin Human NPH 100 Unit/mL 3 mL Inj SUBQ SCH (08:37)
[2017-02-24] MEDS: Isosorbide Mononitrate 60 mg ER24 Tablet PO SCH (08:37)
[2017-02-24 08:39] VITALS: BP 122/61; PULSE 67; RESP 18; O2SAT 97
--- NOTE | 2017-02-24 09:08 | PCM.PNPOD ---
Subjective Date of Service: February 24, 2017 Date of Service: February 24, 2017 Visit Information: Reason for Visit Diabetic Foot Infection Surgery/Surgery Date Post-Op Day # Date of Admission: February 22, 2017 at 20:32 Hospital Day # Subjective: Patient is without complaint denies foot pain, fever chills or malaise. Appetite is good, patient states she is anxious to go home Objective Vital Sign - Last Date Time Temp Pulse Resp B/P Pulse Ox O2 Delivery O2 Flow Rate FiO2 02/24/17 08:39 36.5 67 18 122/61 97 02/24/17 06:22 Room Air Intake and Output 02/23/17 02/23/17 02/24/17 Cumulative From/Thru 15:00 23:00 07:00 02/22/17 15:39 - 02/24/17 06:22 Intake Total 1624 ml 844 ml 3540 ml Output Total 1200 ml 500 ml 2100 ml Balance 424 ml 344 ml 1440 ml Intake Oral 1304 ml 400 ml 2004 ml IV Total 320 ml 444 ml 1536 ml Output Urine Total 1200 ml 500 ml 2100 ml # Bowel Movements 1 1 Result Diagram: 02/23/17 0720 02/23/17 0720 Lab Test 02/22/17 17:10 02/22/17 21:30 02/23/17 07:20 Lactic Acid Level 0.9mmol/L (0.4-2.0) Troponin T < 0.010ug/L (0.0-0.011) Urine Color Yellow (YELLOW) Urine Appearance Hazy (CLEAR,HAZY) Urine pH 5.5 (5.0-8.0) Urine Specific [place] 1.015 (1.003-1.035) Urine Protein Negativemg/dL (NEG,TRACE) Urine Glucose (UA) 250mg/dL (NEGATIVE) Urine Ketones Negativemg/dL (NEGATIVE) Urine Occult Blood Trace (NEGATIVE) Urine Nitrite Negative (NEGATIVE) Urine Bilirubin Negative (NEGATIVE) Urine Urobilinogen Normalmg/dL (NORMAL) Urine Leukocyte Esterase Moderate (NEGATIVE) Urine RBC 0-2/hpf (0-2) Urine WBC 11-50/hpf (0-5) Urine Epithelial Cells Few/hpf (NONE-MOD) Urine Crystals None seen (NONE SEEN) Urine Bacteria Few/hpf (NONE-FEW) Urine Hyaline Casts None/lpf (NONE) Urine Granular Casts None seen (NONE SEEN) Urine Waxy Casts None seen (NONE SEEN) Urine Red Blood Cell Casts None seen (NONE SEEN) Urine White Blood Cell Casts None seen (NONE SEEN) Urine Mucus None seen (None Seen) Urine Trichomonas None seen (NONE SEEN) Urine Yeast None (NONE SEEN) Urinalysis Comment None Urine Culture Reflexed Indicated White Blood Count 12.1th/mm3 (3.8-10.1) Red Blood Count 4.14mil/mm3 (3.90-5.20) Hemoglobin 10.9g/dL (12.0-15.6) Hematocrit 34.3% (35.0-46.0) Mean Corpuscular Volume 82.9fL (81-100) Mean Corpuscular Hemoglobin 26.3pg (27.0-35.0) Mean Corpuscular Hemoglobin Concent 31.8% (32.0-37.0) Red Cell Distribution Width 13.9% (12.3-15.4) Platelet Count 428bil/L (150-400) Neutrophils (%) (Auto) 81.5% (40-74) Lymphocytes (%) (Auto) 13.5% (14-46) Monocytes (%) (Auto) 3.7% (4-12) Eosinophils (%) (Auto) 0.7% (0-5) Basophils (%) (Auto) 0.4% (0-3) Sodium Level 132mEq/L (134-144) Potassium Level 5.2mEq/L (3.5-5.2) Chloride Level 97mEq/L (97-108) Carbon Dioxide Level 21mmol/L (18-29) Blood Urea Nitrogen 17mg/dL (8-27) Creatinine 0.84mg/dL (0.57-1.00) Estimat Glomerular Filtration Rate 97mL/min (>59) Glucose Level 405mg/dL (60-99) Calcium Level 8.5mg/dL (8.5-10.1) Magnesium Level 1.8mg/dL (1.6-2.6) Total Bilirubin 0.6mg/dL (0.0-1.2) Aspartate Amino Transf (AST/SGOT) 13U/L (0-50) Alanine Aminotransferase (ALT/SGPT) 13U/L (0-32) Alkaline Phosphatase 102U/L (25-165) Total Protein 5.6g/dL (6.4-8.4) Albumin 2.7g/dL (3.4-5.0) Exam Additional Information: Reexam shows superficial dry's orientation dorsal lesser digits, reduce digital edema, dorsum of the foot exhibits focal pitting edema but this does appear unrelated to the digital lesions. Webspaces without fissures or maceration, no obvious open portals ulcers or sinus tracts. Pedal skin is otherwise intact. Nails are thickened yellowed dystrophic 5. Assessment & Plan Impression Cellulitis of the left foot largely resolved, superficial wounds appear to be dry and healing., Onychomycosis, peripheral arterial disease, peripheral neuropathy. Problems: Plan At this visit mycotic nails are debrided one through 5 on the left, diabetic foot care recommendations were reviewed and patient will be discharged by the hospitalist on by mouth antibiotics with follow-up with in one week or sooner should she note any worsening or have any concerns regarding the condition of the foot. Socrates Chavez DPM February 24, 2017 09:08
[2017-02-24 09:28] VITALS: PULSE 66
--- NOTE | 2017-02-24 11:20 | PCM.DIMED ---
Discharge Instructions Date of Service February 24, 2017 Dates of Hospitalization February 22, 2017 at 20:32 Discharge Diagnosis Discharge Diagnosis Left leg cellulitis, acute, present on admission: Hypomagnesemia, resolved Type I diabetes mellitus, stable, present admission: Peripheral arterial disease, stable, present admission: Coronary artery disease s/p CABG and stent: Hypertension, stable, present on admission: Diet Diabetic Activity Limited until seen by PCP Call your provider Fever or Chills, Shortness of breath, Bleeding, Chest pain, Vomitting, Excessive diarrhea, Weakness (unilateral), Other (worsening, pain, redness, discharge around foot.) Patient Instructions Follow-up plan follow up with podiatry within 5-7 days of discharge. follow up with pcp as scheduled. Nael Moncada MD February 24, 2017 11:20
[2017-02-24] MEDS ORDERED: DOXY100C2 PO (11:22)
[2017-02-24] MEDS ORDERED: AMOX-366 PO (11:22)
--- NOTE | 2017-02-24 11:29 | PCM.DC.MED ---
Discharge Summary Date of Service February 24, 2017 Dates of Hospitalization Date of Hospital Admission February 22, 2017 at 20:32 Date of Discharge: February 24, 2017 Providers: Admitting Physician: Rigo Jackman MD Primary Care Physician: Litzy Vanegas Attending Physician: Rigo Jackman MD Diagnosis at Time of Discharge Diagnosis at Time of Discharge Left leg cellulitis, acute, present on admission: Hypomagnesemia, resolved Type I diabetes mellitus, stable, present admission: Peripheral arterial disease, stable, present admission: Coronary artery disease s/p CABG and stent: Hypertension, stable, present on admission: Procedures XRay, CTs & MRIs X-ray left foot completed on 02/22/2017: IMPRESSION: 1. Dorsal soft tissue swelling. No acute fracture or dislocation. No findings to suggest advanced osteomyelitis. Please note, plain film is less sensitive for detection of the acute phases of osteomyelitis. If there is clinical suspicion for acute osteomyelitis, contrast enhanced MRI of the foot is recommended. Dictated by: Maria L Woods M.D. on 02/22/2017 at 17:41 Other Diagnostics Left leg venous ultrasound duplex unilateral completed on 02/22/2017: IMPRESSION: No deep vein thrombosis of the left lower extremity. Dictated by: Maria L Woods M.D. on 02/22/2017 at 19:09 Ultrasound duplex Doppler unilateral left leg arteries completed on 02/22/2017: IMPRESSION: 1. Femoral-popliteal bypass graft appears widely patent throughout its course. However, the distal anastomosis is not well characterized. Anastomotic stenosis cannot be excluded. 2. There is poor ultrasound characterization of the popliteal artery and posterior tibial artery. It is unclear whether there may be a high-grade stenosis or occlusion of this artery with reconstitution of the dorsalis pedis via collaterals. If further characterization is warranted, consider CT angiography of the lower extremity. Dictated by: Maria L Woods M.D. on 02/22/2017 at 19:09 Brief History This is a 67-year-old female with past medical history significant for right below the knee amputation, type I diabetes mellitus with neuropathy, coronary artery disease status post stent placement and CABG, and peripheral vascular disease who presents today with swollen and red left toes. She has a significant neuropathy but states she does have some pain described as a burning sensation. The swelling began yesterday and has progressively worsened. Her last A1c was completed last week was 7.9. She denies any fevers , nausea, vomiting, diarrhea, chest pain or pressure, shortness of breath, diaphoresis, numbness or tingling extremities. In the emergency department initial vitals were temperature 36.4c, pulse 66, respiratory rate 16, blood pressure 104/61, satting 98% on room air. Laboratory values: WBC 11.1, hemoglobin 11.6, hematocrit 36.3, MCV 83.3, platelet count 449. CMP was within normal limits except for glucose of 48, albumin of 3.3, and magnesium of 1.4. Lactic acid was 0.9 and troponin less than 0.010. Blood cultures are pending. Venous duplex showed no deep vein thrombosis of the left lower extremity. Left foot x-ray showed dorsal soft tissue swelling, no fracture dislocation, no findings suggestive of advanced osteomyelitis. US duplex left leg arteries showed femoropopliteal bypass graft widely patent however the distal anastomoses was not well characterized. Anastomotic stenosis cannot be excluded. There was poor ultrasound characterization of the popliteal artery and posterior tibial artery. It was unclear whether there may be a high-grade stenosis or occlusion of the artery with reconstitution of the dorsalis pedis via collaterals. Please see full imaging reports for more information. In the emergency department the patient was started on Zosyn and vancomycin. Podiatry was contacted. Dr. Chavez will see the patient in morning. Hospital Course This is a 67-year-old female with past medical history significant for type I diabetes mellitus with peripheral neuropathy, peripheral artery disease, and right leg below the knee amputation who presents with swelling and erythema in her left foot which is consistent with cellulitis. Left leg cellulitis, acute, present on admission: no open wound. improving clinically with iv abx. seen by podiatry cont abx ok to d/c with follow up. augmentin, doxy for 10days. can be tailored based on clinical status at f/u with podiatry. Hypomagnesemia, resolved Type I diabetes mellitus, stable, present admission: very knowledgable about her diabetes. cont home regimen with modifications as necessary. Peripheral arterial disease, stable, present admission: -Ultrasound duplex of left leg arteries stated that a anastomotic stenosis could not be excluded. There is poor ultrasound characterization the popliteal artery and posterior tibial artery. It was unclear whether high-grade stenosis or occlusion of that artery. does not want cta b/c has had renal failure in the past. differ for now. further w/u as outpt as necessary Coronary artery disease s/p CABG and stent: cont med managment Hypertension, stable, present on admission: -Continue home medications. prior to d/c denies: headache, lightheadedness, chest pain, worsening shortness of breath, cough, abdominal pain, nausea, vomiting, diarrhea, dysuria, sweats, chills, shakes Exam Vital Signs (Last) Date Time Temp Pulse Resp B/P Pulse Ox O2 Delivery O2 Flow Rate FiO2 02/24/17 09:28 66 02/24/17 08:39 36.5 18 122/61 97 02/24/17 06:22 Room Air Exam Physical Exam: Gen: no acute distress HEENT: moist mucus membranes Respiratory: CTAB, unlabored respirations Cardiovascular: RRR, no m/r/g Abdomen: soft, non-tender, non-distended. + bowel sounds x 4 quadrants Extr: amputation RLE. LLE erythema surrounding digits. no open wound or ulcer. no spreading erythema. improved exam since yesterday. Psyc: appropriate, cooperative Test 02/22/17 17:10 02/22/17 21:30 02/23/17 07:20 Lactic Acid Level 0.9mmol/L (0.4-2.0) Troponin T < 0.010ug/L (0.0-0.011) Urine Color Yellow (YELLOW) Urine Appearance Hazy (CLEAR,HAZY) Urine pH 5.5 (5.0-8.0) Urine Specific Wilson 1.015 (1.003-1.035) Urine Protein Negativemg/dL (NEG,TRACE) Urine Glucose (UA) 250mg/dL (NEGATIVE) Urine Ketones Negativemg/dL (NEGATIVE) Urine Occult Blood Trace (NEGATIVE) Urine Nitrite Negative (NEGATIVE) Urine Bilirubin Negative (NEGATIVE) Urine Urobilinogen Normalmg/dL (NORMAL) Urine Leukocyte Esterase Moderate (NEGATIVE) Urine RBC 0-2/hpf (0-2) Urine WBC 11-50/hpf (0-5) Urine Epithelial Cells Few/hpf (NONE-MOD) Urine Crystals None seen (NONE SEEN) Urine Bacteria Few/hpf (NONE-FEW) Urine Hyaline Casts None/lpf (NONE) Urine Granular Casts None seen (NONE SEEN) Urine Waxy Casts None seen (NONE SEEN) Urine Red Blood Cell Casts None seen (NONE SEEN) Urine White Blood Cell Casts None seen (NONE SEEN) Urine Mucus None seen (None Seen) Urine Trichomonas None seen (NONE SEEN) Urine Yeast None (NONE SEEN) Urinalysis Comment None Urine Culture Reflexed Indicated White Blood Count 12.1th/mm3 (3.8-10.1) Red Blood Count 4.14mil/mm3 (3.90-5.20) Hemoglobin 10.9g/dL (12.0-15.6) Hematocrit 34.3% (35.0-46.0) Mean Corpuscular Volume 82.9fL (81-100) Mean Corpuscular Hemoglobin 26.3pg (27.0-35.0) Mean Corpuscular Hemoglobin Concent 31.8% (32.0-37.0) Red Cell Distribution Width 13.9% (12.3-15.4) Platelet Count 428bil/L (150-400) Neutrophils (%) (Auto) 81.5% (40-74) Lymphocytes (%) (Auto) 13.5% (14-46) Monocytes (%) (Auto) 3.7% (4-12) Eosinophils (%) (Auto) 0.7% (0-5) Basophils (%) (Auto) 0.4% (0-3) Sodium Level 132mEq/L (134-144) Potassium Level 5.2mEq/L (3.5-5.2) Chloride Level 97mEq/L (97-108) Carbon Dioxide Level 21mmol/L (18-29) Blood Urea Nitrogen 17mg/dL (8-27) Creatinine 0.84mg/dL (0.57-1.00) Estimat Glomerular Filtration Rate 97mL/min (>59) Glucose Level 405mg/dL (60-99) Calcium Level 8.5mg/dL (8.5-10.1) Magnesium Level 1.8mg/dL (1.6-2.6) Total Bilirubin 0.6mg/dL (0.0-1.2) Aspartate Amino Transf (AST/SGOT) 13U/L (0-50) Alanine Aminotransferase (ALT/SGPT) 13U/L (0-32) Alkaline Phosphatase 102U/L (25-165) Total Protein 5.6g/dL (6.4-8.4) Albumin 2.7g/dL (3.4-5.0) Discharge Medications Discharge Medications Amoxicillin/Clav K 875-125 mg (Augmentin 875-125 mg) 1 Each Tablet 1 TABLET PO BID Prescribed by: Mehrdad MENSAH Aspirin (Aspir 81) 81 Mg Tablet.dr 81 MG PO PM (Reported) Atorvastatin Calcium (Atorvastatin Calcium) 80 Mg Tablet 80 MG PO PM (Reported) Cholecalciferol (Vitamin D3) 1,000 Unit Tablet 1,000 UNIT PO AM (Reported) Clopidogrel Bisulfate (Plavix) 75 Mg Tablet 75 MG PO DAILY (Reported) Doxycycline Hyclate (Doxycycline Hyclate) 100 Mg Capsule 100 MG PO BID Prescribed by: Mehrdad MENSAH Gabapentin (Gabapentin) 300 Mg Capsule 300 MG PO HS (Reported) Insulin Regular, Human (Novolin-R U100 Insulin Vial) 100 Unit/1 Ml Vial 0 SQ sliding scale/ TID (Reported) Isosorbide MN ER (Isosorbide MN ER) 60 Mg Tab.er.24h 60 MG PO BID (Reported) Lisinopril (Lisinopril) 5 Mg Tablet 5 MG PO DAILY (Reported) Metoprolol Tartrate (Metoprolol Tartrate) 25 Mg Tablet 25 MG PO BID (Reported) Multivitamin (Multivitamins) 1 Each Tab.chew 1 EACH PO AM (Reported) NPH, Human Insulin Isophane (Novolin-N U100 Insulin Vial) 100 Unit/1 Ml Vial 13 UNIT SUBQ BID (Reported) [place]-3 Fatty Acids (Fish Oil Concentrate) 1,000 Mg Capsule 1,000 MG PO BID ( Reported) Pantoprazole DR (Pantoprazole DR) 40 Mg Tablet.dr 40 MG PO BID (Reported) As needed Diazepam (Diazepam) 10 Mg Tablet 10 MG PO HS PRN PRN For Anxiety (Reported) Polyethylene Glycol 3350 (Polyethylene Glycol 3350) 17 Gm Powd.pack 17 GM PO DAILY PRN PRN For Constipation (Reported) oxyCODONE (oxyCODONE) 5 Mg Capsule 5 MG PO 2-3X/day PRN PRN For Pain (Reported) Followup Plan Follow-up plan follow up with podiatry within 5-7 days of discharge. follow up with pcp as scheduled. Discharge Diet: Diabetic Discharge Activity: Limited until seen by PCP Time spent >35mins Nael Moncada MD February 24, 2017 11:29
[2017-02-24] MEDS ORDERED: Vancomycin Serum Trough XX ONE (17:00)
== END 2017-02-24 14:42 | disposition home or self-care (01) ==
LOC: SED 15:37 → MOC 20:32 → INTOOBSV 20:32
PROVIDERS: ADMIT Hospitalist; ATTEND Hospitalist
DX: L03.116 Cellulitis of left lower limb (principal); E10.42 Type 1 diabetes mellitus with diabetic polyneuropathy; K21.9 Gastro-esophageal reflux disease without esophagitis; I73.9 Peripheral vascular disease, unspecified; E78.5 Hyperlipidemia, unspecified; B35.1 Tinea unguium; I10 Essential (primary) hypertension; I25.10 Atherosclerotic heart disease of native coronary artery without angina pectoris; E83.42 Hypomagnesemia; Z87.891 Personal history of nicotine dependence; Z98.84 Bariatric surgery status; Z95.5 Presence of coronary angioplasty implant and graft; Z89.511 Acquired absence of right leg below knee; Z79.82 Long term (current) use of aspirin; Z79.02 Long term (current) use of antithrombotics/antiplatelets; Z95.1 Presence of aortocoronary bypass graft; Z91.041 Radiographic dye allergy status; Z95.828 Presence of other vascular implants and grafts
CPT/HCPCS: 36415; 73630; 80053; 81000; 82948; 83605; 83735; 84484; 85025; 87040; 87077; 87086; 87088; 87186; 93005; 93926; 93970; 96361; 96365; 96366; 96367; 97161; 97165; 99285; J1650; J1815; J2543; J3370; J7040; J7050; J7060